=== PATIENT | female | born 1940 | race Caucasian/White ===

== ENCOUNTER 2019-11-16 09:04 | Outpatient (CLI) | payer MEDICARE, OTHER, SELFPAY ==
--- NOTE | ~2019-11-16 | MM_ITS ---
EXAMINATION: MM screening dolores BI w maru HISTORY: Screening mammogram TECHNIQUE: Craniocaudal and mediolateral oblique 3-D tomosynthesis images were obtained and synthetic 2-D images were generated. CAD analysis was submitted and interpreted. COMPARISON: 08/10/2018, 04/18/2017, 12/05/2015 BREAST PARENCHYMAL COMPOSITION: The breasts are heterogeneously dense, which may obscure small masses . FINDINGS: Scattered benign-appearing calcifications are present. There is no evidence of suspicious m ass, calcification, or architectural distortion to suggest malignancy in either breast. There has bee n no suspicious interval change. IMPRESSION: 1. No mammographic evidence of malignancy. 2. Recommend routine screening mammography in one year. BI-RADS Category 2: Benign finding(s). Reviewed, dictated and finalized at location A.
== END 2019-11-16 09:05 | disposition home or self-care (01) ==
LOC: ANHIMG 09:16
PROVIDERS: PCP Internal Medicine; Visit Provider Internal Medicine
DX: Z12.31 Encounter for screening mammogram for malignant neoplasm of breast (principal)
CPT/HCPCS: 77063; 77067

== ENCOUNTER 2020-12-06 10:10 | Outpatient (CLI) | payer MEDICARE, SELFPAY ==
--- NOTE | ~2020-12-06 | MM_ITS ---
EXAMINATION: MM screening dolores BI w maru HISTORY: Screening mammogram TECHNIQUE: Craniocaudal and mediolateral oblique 3-D tomosynthesis images were obtained and synthetic 2-D images were generated. CAD analysis was submitted and interpreted. COMPARISON: 11/16/2019, 08/06/2018, 04/18/2017 bilateral digital screening mammogram examinations BREAST PARENCHYMAL COMPOSITION: The breasts are heterogeneously dense, which may obscure small masses . FINDINGS: Scattered bilateral benign calcifications. There is no evidence of suspicious mass, calcifi cation, or architectural distortion to suggest malignancy in either breast. There has been no suspici ous interval change. IMPRESSION: 1. No mammographic evidence of malignancy. 2. Recommend routine screening mammography in one year. BI-RADS Category 2: Benign finding(s). Reviewed, dictated and finalized at location A.
== END 2020-12-06 10:11 | disposition home or self-care (01) ==
LOC: ANHIMG 10:14
PROVIDERS: PCP Internal Medicine; Visit Provider Internal Medicine
DX: Z12.31 Encounter for screening mammogram for malignant neoplasm of breast (principal)
CPT/HCPCS: 77063; 77067

== ENCOUNTER 2021-07-20 14:28 | Outpatient (RCR) | payer MEDICARE, SELFPAY ==
[2021-07-20] MEDS: diphenhydrAMINE HCl CAP 25 MG CAPSULE PO (14:37)
[2021-07-20] MEDS: FAMOTIDINE 20 MG TABLET PO (14:38)
[2021-07-20 14:41] VITALS: BP 137/73; PULSE 84; RESP 18; TEMP 35.9; O2SAT 100
[2021-07-20] MEDS: BEBTELOVIMAB 175 MG/2 ML VIAL IV PUSH (15:01)
[2021-07-20 15:49] VITALS: BP 127/74; PULSE 76; RESP 18; O2SAT 100
== END 2021-07-20 16:00 | disposition home or self-care (01) ==
LOC: AMCINF 14:28
PROVIDERS: Referring Provider Internal Medicine; Visit Provider Internal Medicine Hematology & Oncology
DX: U07.1 COVID-19 (principal); J44.9 Chronic obstructive pulmonary disease, unspecified
CPT/HCPCS: A9270; M0222; Q0222

== ENCOUNTER 2021-08-01 13:40 | Outpatient (CLI) | payer MEDICARE, SELFPAY ==
--- NOTE | ~2021-08-01 | XR_ITS ---
EXAMINATION: XR chest 2V Exam Date/Time: 08/01/2021 14:07 CDT HISTORY: DRY COUCH X 2 MONTHS Comparison: None available. RESULT: Lines, tubes, and devices: None. Lungs and pleura: Senescent changes, otherwise clear. Cardiomediastinal silhouette: Stable cardiomediastinal silhouette. Other: No acute osseous or upper abdominal finding. Presumed old mild anterior wedge deformity at T7 . IMPRESSION: No acute cardiopulmonary process. Reviewed, dictated and finalized at location K.
== END 2021-08-01 13:41 | disposition home or self-care (01) ==
PROVIDERS: PCP Internal Medicine; Visit Provider Internal Medicine
DX: R05.9 Cough, unspecified (principal)
CPT/HCPCS: 71046

== ENCOUNTER 2021-12-25 13:17 | Outpatient (CLI) | payer MEDICARE, SELFPAY ==
--- NOTE | ~2021-12-25 | DEXA_ITS ---
Bone Density Report Name: JOEY GÓMEZ Age: 81 Sex: Female Ethnicity: White Date of : 1940 Indication: postmenopausal; screening for osteoporosis; parental hip fracture; height loss; prior fracture; Referring Provider[facility] Study: Bone densitometry was performed. Exam Date: December 25, 2021 Accession number: [id number] Bone Density: Region BMD T-score Z-score Classification AP Spine(L1-L4) 0.946 -0.9 1.8 Normal Femoral Neck (Right) 0.527 -2.9 -0.5 Osteoporosis Total Hip (Right) 0.566 -3.1 -1.0 Osteoporosis World Health Organization criteria for BMD impression classify patients as: Normal (T-score at or above -1.0), Osteopenia (T-score between -1.0 and -2.5), or Osteoporosis (T-score at or below -2.5). 10-year Fracture Risk: FRAX not reported because: Some T-score for Spine Total or Hip Total or Femoral Neck at or below -2.5 Prior hip or vertebral fracture Clinical Information Provided by Patient: Have had a previous hip or vertebral fracture Has had a low trauma fracture Parent has had a hip fracture Has used the following medications: Vitamin D, Calcium Patient maximum height was 70 Menopause Age: 55 Drinks caffeinated beverages Onset of menses at age 13 Number of children 3 Impression: The patient has established osteoporosis, based on the Right Total Hip T-score and the existence of a prior fracture. The patient has risk factors, including: parental hip fracture, previous fracture. Discussion: HIGH RISK OF FRACTURE. BONE DENSITY IS UNDESIRABLY LOW AT ONE OR MORE SKELETAL SITES, CONSISTENT WITH POSTMENOPAUSAL OSTEOPOROSIS. This patient's lowest T-score, in a patient who has previously fractured, meets the World Health Organization's (WHO) criteria for severe osteoporosis. In untreated patients, the risk of osteoporotic fracture increases approximately two-fold for each 1.0 SD decrease in T-score. Low bone density is not the only risk factor for fracture; also consider factors such as patient's age, frailty or poor health, risk of falling, risk of injury, previous osteoporotic fracture, family history of osteoporosis, cigarette smoking, low body weight, etc. Not everyone with low bone mineral density has osteoporosis; osteomalacia and other metabolic bone disorders should also be considered. Patients who have osteoporosis should be evaluated for specific diseases and conditions (secondary causes) that may cause or contribute to bone loss. The [place] Association of Clinical Endocrinologists (AACE) and National Osteoporosis Foundation (NOF) recommend pharmacologic intervention for all postmenopausal women with a previous hip or vertebral fracture and a T-score in this range. The patient should follow a healthful lifestyle (good nutrition with adequate calcium and vitamin D, and appropriate weight-bearing exercise).
== END 2021-12-25 13:18 | disposition home or self-care (01) ==
PROVIDERS: PCP Internal Medicine; Visit Provider Internal Medicine
DX: M81.0 Age-related osteoporosis without current pathological fracture (principal)
CPT/HCPCS: 77080

== ENCOUNTER 2022-02-04 09:21 | Outpatient (CLI) | payer MEDICARE, SELFPAY ==
--- NOTE | ~2022-02-04 | MM_ITS ---
EXAMINATION: MM screening dolores BI w maru HISTORY: Screening TECHNIQUE: Craniocaudal and mediolateral oblique 3-D tomosynthesis images were obtained and synthetic 2-D images were generated. CAD analysis was submitted and interpreted. COMPARISON: Comparison to multiple prior studies sequentially, with oldest reviewed study dated 03/16. BREAST PARENCHYMAL COMPOSITION: The breasts are heterogeneously dense, which may obscure small masses FINDINGS: There is a developing focal asymmetry superiorly in the right breast on MLO view. The left breast is stable without evidence for malignancy. IMPRESSION: 1. Developing right breast asymmetry superiorly on MLO view. 2. Additional mammographic views and possible breast ultrasound are recommended. BI-RADS Category 0: Incomplete: Needs additional imaging evaluation. Reviewed, dictated and finalized at location A. NT SERVICES MANAGER IMPRESSION: 1. Developing right breast asymmetry superiorly on MLO view. 2. Additional mammographic views and possible breast ultrasound are recommended . BI-RADS Category 0: Incomplete: Needs additional imaging evaluation.
== END 2022-02-04 09:22 | disposition home or self-care (01) ==
LOC: ANHIMG 09:22
PROVIDERS: PCP Internal Medicine; Visit Provider Internal Medicine
DX: Z12.31 Encounter for screening mammogram for malignant neoplasm of breast (principal); R92.8 Other abnormal and inconclusive findings on diagnostic imaging of breast
CPT/HCPCS: 77063; 77067

== ENCOUNTER 2022-03-07 12:30 | Outpatient (CLI) | payer MEDICARE, SELFPAY ==
--- NOTE | ~2022-03-07 | MM_ITS ---
EXAMINATION: MM diagnostic dolores RT w maru HISTORY: Possible right breast mass on screening mammogram TECHNIQUE: Additional 3-D tomosynthesis images of the right breast were performed and synthetic 2-D i mages were generated. CAD analysis was submitted and interpreted. COMPARISON: 02/04/2022, 12/06/2020, 11/16/2019 FINDINGS: There is a return to baseline fibroglandular appearance with spot compression of the right breast in the area questioned on screening mammogram. A stable asymmetry is seen in the middle third of the upper right breast on the mediolateral oblique view. IMPRESSION: 1. No mammographic evidence of malignancy. 2. Recommend annual screening mammography while the patient remains in good health. BI-RADS Category 2: Benign finding(s). Reviewed, dictated and finalized at location A. ATER IMPRESSION: 1. No mammographic evidence of malignancy. 2. Recommend annual screening mammography while the patient remains in good hea lth. BI-RADS Category 2: Benign finding(s).
== END 2022-03-07 12:31 | disposition home or self-care (01) ==
PROVIDERS: PCP Internal Medicine; Visit Provider Internal Medicine
DX: R92.8 Other abnormal and inconclusive findings on diagnostic imaging of breast (principal)
CPT/HCPCS: 77061; 77065; G0279

== ENCOUNTER 2022-08-14 14:02 | Outpatient (CLI) | payer MEDICARE, SELFPAY ==
--- NOTE | ~2022-08-14 | XR_ITS ---
EXAMINATION: XR hip RT min 2V DATE: 08/14/2022 14:28 INDICATION: Right hip pain TECHNIQUE: Two views of right hip were obtained. COMPARISON: None. FINDINGS: Bone alignment is normal. There is no fracture. There is mild osteoarthritis of the right. The soft tissues are unremarkable. There is at least moderate lower lumbar spondylosis. IMPRESSION: 1. No acute osseous abnormality. Reviewed, dictated and finalized at location []
== END 2022-08-14 14:03 | disposition home or self-care (01) ==
PROVIDERS: PCP Internal Medicine; Visit Provider Internal Medicine
DX: M25.551 Pain in right hip (principal)
CPT/HCPCS: 73502

== ENCOUNTER 2023-08-18 09:50 | Outpatient (CLI) | payer MEDICARE, SELFPAY ==
--- NOTE | ~2023-08-18 | MM_ITS ---
EXAMINATION: MM screening dolores BI w maur HISTORY: Screening mammogram, family history of breast cancer in her sister. TECHNIQUE: Craniocaudal and mediolateral oblique 3-D tomosynthesis images were obtained and synthetic 2-D images were generated. CAD analysis was submitted and interpreted. COMPARISON: 02/04/2022, 12/06/2020, 11/16/2019 BREAST PARENCHYMAL COMPOSITION:Dense: The breasts are heterogeneously dense, which may obscure small masses. FINDINGS: No suspicious mass, calcification, or architectural distortion are identified in either harpreet ast to suggest malignancy. There has been no suspicious interval change. IMPRESSION: No mammographic evidence of malignancy. Recommend routine screening mammography in one year. BI-RADS Category 1: Negative Reviewed, dictated and finalized at location .
== END 2023-08-18 09:51 | disposition home or self-care (01) ==
LOC: ANHIMG 09:52
PROVIDERS: PCP Internal Medicine; Visit Provider Internal Medicine
DX: Z12.31 Encounter for screening mammogram for malignant neoplasm of breast (principal)
CPT/HCPCS: 77063; 77067

== ENCOUNTER 2023-11-27 10:50 | Outpatient (CLI) | payer MEDICARE, SELFPAY ==
--- NOTE | ~2023-11-27 | US_ITS ---
EXAMINATION: US venous doppler [facility] DATE: 11/27/2023 11:35 INDICATION: Left lower limb pain and edema. TECHNIQUE: Grayscale ultrasound images without and with compression and Doppler ultrasound images of the left lower extremity veins were obtained. COMPARISON: None. FINDINGS: The visualized portions of left common femoral vein, profunda (deep) femoral vein, femoral vein, popl iteal vein, peroneal veins, posterior tibial veins, and greater saphenous vein outflow are patent. IMPRESSION: 1. No deep venous thrombosis. Reviewed, dictated and finalized at location A.
--- NOTE | ~2023-11-27 | XR_ITS ---
Left ankle Technique: AP, oblique, and lateral views were obtained. Clinical History: Pain Findings: No acute fracture or dislocation is seen. Osseous alignment is anatomic. Ankle mortise and other visualized joint spaces are preserved. Soft tissues are otherwise unremarkable. Impression: Unremarkable left ankle. Reviewed, dictated and finalized at location . Impression: Unremarkable left ankle.
== END 2023-11-27 10:51 | disposition home or self-care (01) ==
PROVIDERS: PCP Internal Medicine; Visit Provider Internal Medicine
DX: R60.0 Localized edema (principal)
CPT/HCPCS: 73610; 93971

== ENCOUNTER 2024-12-27 15:10 | Outpatient (CLI) | payer MEDICARE, SELFPAY ==
--- NOTE | ~2024-12-27 | MM_ITS ---
EXAMINATION: MM screening dolores BI w maru HISTORY: Screening TECHNIQUE: Craniocaudal and mediolateral oblique 3-D tomosynthesis images were obtained and synthetic 2-D images were generated. CAD analysis was submitted and interpreted. COMPARISON: Comparison to multiple prior studies sequentially, with oldest reviewed study dated 08/10/2018. BREAST PARENCHYMAL COMPOSITION: Dense: The breasts are heterogeneously dense, which may obscure small masses FINDINGS: There is no evidence of suspicious mass, calcification, or architectural distortion to suggest malignancy in either breast. There has been no suspicious interval change. IMPRESSION: 1. No mammographic evidence of malignancy. 2. Recommend routine screening mammography in one year. BI-RADS Category 1: Negative Reviewed, dictated and finalized at location B. [employer]
--- OUTSIDE RECORDS SUMMARY | 2024-12-27 15:13 | XMS_ITS | Clinical Summary ---
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 Gender Identity Not on file Sexual Orientation Not on file Plan of Treatment Health Maintenance Due Date Last Done Comments Hepatitis C Virus (HCV) Screening 1940 Pneumococcal Immunization (50+ years) (1 of 1 - PCV) 1990 Zoster Immunization (1 of 2) 1990 Respiratory Syncytial Virus (RSV) Immunization (Adult) (1 - 1-dose 75+ series) 09/25/2015 Influenza Immunization (#1) 2024 09/0 09/2019, 12/24/2017, 01/15/2017, Additional history exists SARS-COV-2 Immunization ( season) 2024 DTaP/Tdap/Td Immunization Discontinued 08/16/2019 TdaP Immunization Completed 08/16/2019 Hepatitis B Immunization Aged Out No longer eligible based on patient's age to complete this topic Human Papillomavirus (HPV) Immunization Aged Out No longer eligible based on patient's age to complete this topic Meningococcal Immunization (ACWY) Aged Out No longer eligible based on patient's age to complete this topic Rotavirus Immunization Aged Out No lo nger eligible based on patient's age to complete this topic
--- OUTSIDE RECORDS SUMMARY | 2024-12-27 15:13 | XMS_ITS | Clinical Summary ---
Author Organization [facility] [place] Address [address] [place] [address] Care Team Providers Care Caretaker Resort Name Role Phone Austin Barrientos MD Primary Care Provider [phone] Allergies No known active allergies Medications rosuvastatin (CRESTOR) 5 mg tablet Take 1 tablet (5 mg total) by mouth daily with dinner 10/15/19 21 Active calcium carbonate (OS-ESTHER) 1,250 mg (500 mg elemental) tablet Take 1 tablet (1,250 mg total) by mouth every morning Active gabapentin (NEURONTIN) 100 mg capsule Take 1 capsule (100 mg total) by mouth as needed Active fexofenadine (RAYNA) 180 mg tablet Take 1 tablet (180 mg total) by mouth nightly Active fluticasone propionate (FLONASE) 50 mcg/actuation nasal spray Administer 1 spray into each nostril every morning Active ergocalciferol (VITAMIN D) 50,000 unit capsule TAKE 1 CAP 2 X A WEEK FOR 8 WEEKS THEN FOLLOW UP WITH YOUR PCP. 16 capsule 02/20/19 24 Active senna-docusate (PERICOLACE) 8.6-50 mgIndications:cons tipation Take 2 tablets by mouth 2 (two) times a day 80 tablet 02/25/19 24 Active ondansetron ODT (ZOFRAN-ODT) 4 mg disintegrating tabletIndications: Prevention of Post-Operative Nausea and Vomiting Take 1 tablet (4 mg total) by mouth every 8 (eight) hours as needed for nausea or vomiting 20 tablet 02/26/19 24 Active acetaminophen 500 mg capsuleIndications :Pain Take 2 capsules (1,000 mg total) by mouth every 8 (eight) hours 90 tablet 03/12/19 24 Active levothyroxine (SYNTHROID) 25 mcg tablet Take 1 tablet every day by oral route in the morning. 02/15/20 23 Active traZODone (DESYREL) 50 mg tablet Active traMADoL (ULTRAM) 50 mg tabletIndications: Postoperative pain Take 1 tablet (50 mg total) by mouth every 8 (eight) hours as needed for pain 42 tablet 05/15/19 24 Active ibuprofen 200 mg tab/cap Take 2 tablet/capsule (400 mg total) by mouth every 6 (six) hours as needed for pain Active spironolactone (ALDACTONE) 25 mg tablet Take 1 tablet (25 mg total) by mouth daily 11/26/19 24 Active amoxicillin-clavul anate (AUGMENTIN) 500-125 mg per tablet TAKE 1 TABLET BY MOUTH EVERY 8 HOURS FOR 10 DAYS 025 Discontin ued(Thera py completed ) amoxicillin-clavul anate (AUGMENTIN) 875-125 mg per tablet Take 1 tablet by mouth every 12 (twelve) hours 08/10/19 025 Discontin ued(Thera py completed ) Active Problems Problem Noted Date Diagnosed Date Lumbar radiculopathy 12/14/2024 Arthritis 05/24/2024 Fatigue 05/24/2024 Osteoporosis 05/24/2024 Polyp of colon 05/24/2024 Neurogenic claudication 10/17/2023 Chronic bilateral low back pain 10/17/2023 Arthritis of right knee 02/25/2023 Hypertension 02/12/2023 History of DVT (deep vein thrombosis) 02/12/2023 Allergic rhinitis 01/15/2023 Cellulitis of lower leg 07/07/2022 Atypical chest pain 06/04/2022 Cramp in lower leg associated with rest 06/05/19 Acute sinusitis 05/31/2022 Neuropathy 05/04/2022 High thyroid stimulating hormone (TSH) level 09/2022 Compression fracture of thoracic vertebra 2022 Cough 02/18/2022 Hyperlipidemia 02/18/2022 Standard chest x-ray abnormal 02/18/2022 Underweight 02/18/2022 Osteoarthritis of knee 02/18/2022 Pain of right hip joint 02/18/2022 Hip pain 02/18/2022 Mammogram abnormal 02/12/2022 Other abnormal and inconclus charlie findings on diagnostic imaging of breast 02/12/2022 Right hip pain 05/08/2021 Bucket-handle tear of medial meniscus of right knee as current injury 05/07/2021 Primary osteoarthritis of right knee 02/27/2021 Suspected severe acute respi ratory syndrome coronavirus 2 (SARS-CoV-2) infection 05/03/2020 Encounters Date Type Department Care Team Description 12/14/2024 1:24 PM CDT - 12/14/2024 11:59 PM CDT Hospital Encounter [facility] [place] at the [address] [place] [id number] Rhea Chino MD Lumbar radiculopathy (Primary Dx); Primary osteoarthritis of left knee Discharge Disposition: Discharge to home or self care 11/01/2024 Orders Only [facility] at the [address] [place] [address] Rhea Chino MD Lumbar radiculopathy (Primary Dx) 11/01/2024 Telephone [facility] at the [address] [place] [id number] Rhea Chino MD pt order 10/15/2024 11:30 AM CDT Office Visit [facility] [address] [place] [address] Liyah Mallory [place], [place] Primary osteoarthritis of left knee (Primary Dx) from Last 3 Months Immunizations Immunization Administration Dates Next Due COVID-19 mRNA (PFIZER) 0.3 m L (10 mcg) vaccine (5-11 years) 11/19/2022 Flucelvax Influenza Quad MDI 01/04/2013 Influenza, Quadrivalent, Spl it, Intramuscular 11/18/2015,01/04/2013 Influenza, Quadrivalent, Spl it, Preservative Free, Intramuscular 12/22/2018 Influenza, Trivalent, Adjuva nted, Intramuscular 01/15/2017 Influenza, Trivalent, High D ose, Split, Preservative Free, Intramuscular 12/24/2017,12/26/2015 Influenza, Trivalent, IM (MDV) 12/22/2018 Influenza, Trivalent, Preser vative Free, Intramuscular 10/26/2019,12/04/2014,01/04/2014 Influenza, Unspecified 11/12/2022 Pfizer SARS-CoV-2 Monovalent Vaccination (12+ Yrs) PURPLE 12/01/2020 Tdap 08/16/2019 ZOSTER Recombinant 06/21/2022,02/20/2022 Surgical History Surgery Date Site/Laterality Comments TOTAL HIP ARTHROPLASTY Left JOINT REPLACEMENT Left hip BREAST SURGERY Right lumpectomy BUNIONECTOMY Left Medical History Medical History Date Comments Hypercholesteremia Allergic rhinitis Nerve damage of foot right foot after shingels Motion sickness Family History Medical History Relation Name Comments Coronary artery disease Father Hyperlipidemia Father Hypertension Father Heart disease Mother Anesthesia problems Neg Hx Relation Name Status Comments Father Mother Social History Tobacco Use Types Packs/Day Years Used Date Smoking Tobacco: Former Cigarettes Q uit: 1979 Smokeless Tobacco: Never Tobacco Cessation:Counseling Given: Not Answered Comments:Social smoker Alcohol Use Standard Drinks/Week Comments Yes 4 (1 standard drink = 0.6 oz pur e alcohol) Hunger Vital Sign Answer Date Recorded Within the past 12 months, y ou worried that your food would run out before you got the money to buy more. Never true 10/17/19 24 Within the past 12 months, t he food you bought just didn't last and you didn't have money to get more. Never true 10/17/2023 AUDIT-C Answer Date Recorded Q1: How often do you have a drink containing alcohol? 4 or more times a week 12/14/2024 Q2: How many drinks containi ng alcohol do you have on a typical day when you are drinking? 1 or 2 Q3: How often do you have si x or more drinks on one occasion? Less than monthly 12/14/2024 Personal Safety Answer Date Recorded Have you ever been in or are you currently in a harmful physical or emotional relationship or is someone making you feel afraid or unsafe? 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 Gender Identity Not on file Sexual Orientation Not on file Last Filed Vital Signs Vital Sign Reading Time Taken Comments Blood Pressure 117/70 12/14/2024 1:30 PM CDT 81 Pulse 72 12/14/2024 1:30 PM CDT Temperature 36.1 C (97 F) 12/14/2024 1:30 PM CDT Respiratory Rate 16 12/14/2024 1:30 PM CDT Oxygen Saturation 97% 12/14/2024 1:30 PM CDT Inhaled Oxygen Concentration - - Weight 57.2 kg (126 lb 3.2 oz) 12/14/2024 1:30 P M CDT Height 152.4 cm (5') 12/14/2024 1:30 PM CDT Body Mass Index 24.65 12/14/2024 1:30 PM CDT Plan of Treatment Health Maintenance Due Date Last Done Comments Depression Screening 1940 Hepatitis B Screening 1958 Pneumococcal vaccine 65+ (1 of 2 - PCV) 09/25/1959 Well Visit 65+ 2005 Osteoporosis Screening-Bone Density Scan 10/09/2023 10/08/2021, 07/31/2021, 04/10/2021, Additional history exists Fall Risk Assessment 02/27/2024 02/26/2023 Covid-19 Vaccine (2024-2 6 season) 2024 11/19/2022, 12/01/2020, 04/10/2020, Additional history exists Influenza Vaccine (#1) 2024 , 10/26/2019, 12/22/2018, Additional history exists DTaP/Tdap/Td Vaccine (2 - Td or Tdap) 08/15/2029 08/16/2019 Zoster Vaccine Completed 06/21/2022, 02/20/2022 Goals Goal Patient Goal Type Associated Problems Recent Progress Patient-Stated? Author CCM Chronic Pain Care Plan Chronic Care Management On track(2024 1:38 PM CDT) Saritha Robbins, RN Note: Problem: Chronic Pain Goals: 1. Minimize further functional decline 2. Maximize quality of life 3. Control pain Strategies: - Activity/exercise program recommendation - Conservative stepwise pain medicine strategy with multi-disciplinary approach - Recommend healthy lifestyle strategies and compensatory methods as needed Medical Devices Implanted Type Area Geospatial Engineer Device Identifier Shelf Expiration Date Model / Serial / Lot Hip Left: Hip [employer] Attune Fb Tib Base Sz 6 Por [id number] - [id number] Implanted:Qty: 1 on 02/25/2023 by Adriel Dalton MD at [facility] Right: Knee [employer] [id number] 02/17/2032 [id number] / / [employer] Insert Tibial Knee Fixed Rm Posterior Stabilized Attune 5mm Size 7 Polyethylene [id number] - [id number] Implanted:Qty: 1 on 02/25/2023 by Adriel Dalton MD at [facility] Right: Knee [employer] [id number] 12/17/2030 [id number] / / [employer] Attune Cruciate Retain Cementless Knee Right 7 Component Femoral [id number] - [id number] Implanted:Qty: 1 on 02/25/2023 by Adriel Dalton MD at [facility] Right: Knee [employer] [id number] 09/16/2032 [id number] / / Procedures Procedure Name Priority Date/Time Associated Diagnosis Comments VA ARTHROCENTESIS ASPIR&/INJ MAJOR JT/BURSA W/O US Routine 10/15/2024 11:30 AM CDT Primary osteoarthritis of left knee from Last 3 Months Results * VA ARTHROCENTESIS ASPIR&/INJ MAJOR JT/BURSA W/O US (10/15/2024 11:30 AM CDT) Narrative Liyah Mallory PA - 10/15/2024 11:30 AM CDT Liyah Mallory PA 10/15/2024 12:00 PM Large Joint Injection: L knee Performed by: Liyah Mallory PA Authorized by: Liyah Mallory PA Large Joint Injection/Aspiration: Consent Given by: Patient Site marked: the procedure site was marked Verbal consent obtained: Yes Supporting Documentation: Indications: Pain Procedure Details: Location: Knee Site: L knee Prep: patient was prepped and draped in usual sterile fashion Needle Size: 21 G Approach: Anterolateral Ultrasound guided: No Fluroscopic guidance: No Medications: 30 mg hyaluronate sodium, cross-linked 30 mg/3 mL Patient tolerance: Patient tolerated the procedure well with no immediate complications us Liyah MERIDA IN CLINIC/BEDSIDE OR DERABLES Final Result from Last 3 Months Insurance MEDICARE [facility] MEDICARE [facility] MEDICARE SUPPLEMENT MEDICARE [facility] MEDICARE SUPPLEMENT Advance Directives For more information, please contact: [phone] Documents on File Type Date Recorded 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
--- OUTSIDE RECORDS SUMMARY | 2024-12-27 15:13 | XMS_ITS | Clinical Summary ---
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 Gender Identity Not on file Sexual Orientation Not on file Plan of Treatment Health Maintenance Due Date Last Done Comments Pneumococcal Vaccine: 50+ Years (1 of 1 - PCV) 1990 Zoster Vaccines (1 of 2) 1990 Annual Medicare Wellness Visit 2005 RSV Immunization or 60+ Years (1 - 1-dose 75+ series) 09/25/2015 COVID-19 Vaccine ( - season) 2024 12/01/2020, 04/10/2020, 03/17/2020 Influenza Adult (#1) 2024 10/26/2019, 12/22/2018, 01/15/2017, Additional history exists DTaP, Tdap and Td Vaccines (2 - Td or Tdap) 08/15/2029 08/16/2019 Dexa Scan (General) Completed 10/08/2021, 07/31/2021, 04/10/2021, Additional history exists Hepatitis A Vaccines Aged Out No long er eligible based on patient's age to complete this topic Meningococcal B Vaccine Aged Out No l onger eligible based on patient's age to complete this topic Meningococcal Vaccine Aged Out No tori hari eligible based on patient's age to complete this topic RSV Immunizations Under 20 Months Aged Out No longer eligible based on patient's age to complete this topic Insurance MEDICARE [place] [address] [place] [address] Care Teams 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
--- OUTSIDE RECORDS SUMMARY | 2024-12-27 15:14 | XMS_ITS | Encounter Summary ---
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 Phone Unavailable Primary Care Provider Unavailabl e Encounter Details Date Type Department Care Team (Late st Contact Info) Description 11/19/2023 Lab Requisition [facility] - DermPath Lab [address] [facility] [place] [address] Enedina Navarrete MD [address] [facility] [address] [place] [address] Social History Tobacco Use Types Packs/Day Years Used Date Smoking Tobacco: Never Assessed Comments Unknown Sex and Gender Information Value Date Recorded Sex Assigned at Not on file 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 Gender Identity Not on file Sexual Orientation Not on file documented as of this encounter Plan of Treatment Not on file documented as of this encounter Procedures Procedure Name Priority Date/Time Associated Diagnosis Comments DERMATOPATHOLOGY Routine 11/19/2023 3:44 PM CDT documented in this encounter Results * DERMATOPATHOLOGY (11/19/2023 3:44 PM CDT) Case Report Dermatopathology Report Case: [id number] Authorizing Provider: Enedina Navarrete MD Collected: 11/19/2023 03:44 PM Ordering Location: [facility] - Received: 11/20/2023 03:51 PM DermPath Lab Pathologist: Dena Wilkinson MD Specimen: Skin, right upper forearm 4:54 PM CDT DERMATOPATHOLOGY LABORATORY Final Diagnosis Specimen A. 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 DERMATOPATHOLOGY LABORATORY Gross Description Specimen A: Received is one formalin filled container labeled with the patient's name and designated right upper forearm.The specimen consists of an ellipse measuring [id number] mm and is oriented with the suture/notch at the 12 o'clock position labeled on the requisition. The 12 to 6 o'clock margin is inked green. The 6 o'clock to 12 o'clock margin is inked red. The 12 o'clock tip is submitted in cassette 1. The 6 o'clock tip is submitted in cassette 2. The remainder of the ellipse is serially sectioned and submitted in cassettes 3-6. Jar 0. 4:[address] [facility] DERMATOPATHOLOGY LABORATORY Microscopic Description Specimen A. SKIN, right upper forearm: The epidermis shows parakeratosis, full thickness disorderly maturation of keratinocytes, mitoses at different levels, and dyskeratotic cells. This lesion is not present at the margin of the specimen. There are fibroblasts and collagen bundles oriented parallel to the skin surface with elongated blood vessels, some of which are oriented perpendicular to the skin surface. 4:[address] [facility] DERMATOPATHOLOGY LABORATORY Disclaimer An external and internal positive and negative controls are appropriate for the histochemical, immunohistochemical and immunofluorescence stain(s) in this case (if any), except where stated explicitly. The performance characteristics of the stain(s) cited in this report were developed and its performance characteristic determined by the Dermatopathology Laboratory at [facility], directed by Dr. Tisha Jacinto. These tests need not be, and therefore are not, approved by the [place] Food and Drug Administration. The tests are used for clinical purposes. Billing Codes Specimen Charges Stain Charges 97461 1 4:54 PM CDT DERMATOPATHOLOGY LABORATORY Embedded Images 4:54 PM T DERMATOPATHOLOGY LABORATORY Pathology/Cytolo gy TISSUE SPECIMEN FROM SKIN / Unknown 11/19/2023 3:44 PM CDT 11/20/2023 3:51 PM CDT us Enedina Navarrete MD LAB - PATHOLOGY/CYTOLOGY ORD ERABLES Final Result DERMATOPATHOLOGY LABORATORY [facility] - Department of Dermatology [facility] Special[facility] Medicine [address] [place] [address], [address] [phone] documented in this encounter Visit Diagnoses Not on filedocumented in this encounter
--- OUTSIDE RECORDS SUMMARY | 2024-12-27 15:14 | XMS_ITS ---
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 fallen for over -- no fear of falling or falling tendency [id number] Austin Barrientos MD [place], [place] [address] [facility] [address] [address] 05/07/2023 15:02:04 05/07/2023 17:16:38 Low back pain 768531467 M54.50 -- recheck lab(s) within 7 days from 05/07/[address] imulating hormone level above reference range 539347947 R79.89 -- recheck lab(s) within 7 days from 05/07/23 Hyperlipidemia 59150319 E78.5 -- Based on Atheroscle rotic Cardiovasc ular Disease 10-year risk calculatio n of 20.0% on 10/26/17, I will recommend pt start on cholestero l med to decrease her high risk for stroke, & heart attack. -- recheck lab(s) within 7 days from 05/07/23 Insomnia 769476857 G47.0 0 [id number] Austin Barrientos MD [facility], [address] [place] ,[address] [place] [address] 06/12/2023 11:50:51 06/12/2023 13:53:23 Low back pain 439113915 M54.50 -- recheck lab(s) within 7 days from 05/07/23 [id number] [facility] [address] [place] ,[address] [place] [address] 07/28/2023 15:52:07 07/28/2023 16:18:37 Spontaneous ecchymosis 691894278 R23.3 -- advised to stop Ibuprofen- - see photo Pain in right foot 99115 75681 53533 M79.671 [id number] Austin Barrientos MD [facility], [address] [place] ,[address] [address] 10/23/2023 14:20:28 10/23/2023 15:36:43 Lumbar radiculopathy 863241755 M54.16 -- currently seeing pain management at [facility] Dr Rhea Chino ([phone])-- pt reports she will be getting epidural injection on 11/27/23 [id number] MD [facility], [address] [place] ,[address] [place] [address] 11/26/2023 08:28:53 11/26/2023 09:01:57 Venous stasis ulcer with edema of left lower leg 6096117748 6567253 L97.929 At low risk for fall 439 879779 Z91.81 -- no unsteady balance or gait problems-- no fear of falling or falling tendency Pain of le ft ankle joint 4421595059 3512759 M25.572 [id number] [facility], [address] [place] [address] [place] [address] 01/13/2024 10:48:55 01/13/2024 12:02:04 Swelling of lower limb 970927641 R22.40 (LLE >>RLE) Adult heal th examination 409145790 Z00.00 Venous sta sis ulcer with edema of left lower leg 5791155599 4175754 L97.929 Pain of le ft ankle joint 5340063903 5603897 M25.572 -- xrays on 11/27/23 At low risk for fall 439 158028 Z91.81 -- no unsteady balance or gait problems-- no fear of falling or falling tendency Left flank pain 58052172 9 R10.9 Hypothyroidism 96010634 E03.9 Hyperlipidemia 84956581 E78.5 -- Based on Atheroscle rotic Cardiovasc ular Disease 10-year risk calculatio n of 20.0% on 10/26/17, I will recommend pt start on cholestero l med to decrease her high risk for stroke, & heart attack. -- recheck lab(s) Osteoarthr itis of knee 045104404 M17.9 -- pt has surgery scheduled w/ Dr Adriel Dalton-- pt is medically cleared for Rt TKR on 02/25/23 Osteoporosis 64878993 M8 1.0 -- last DEXA done 12/25/21-- advised weight bearing exercise-- pt does not want to do Anabolics Cramp in l ower leg associated with rest 890939427 G47.62 -- may be anemic after Rt TKR on 09/17/[address] Carlos Mendoza-- recheck lab(s) in 2 months Body mass index less than 20 905037695 Z68.1 -- advised weight gain; pt lost 1 # since her last visit -- pt's BMI today is 16.9 (ideal is between 20-25) Active or passive immunization 502809034 Z23 -- pt reported she had Flu shot in Fall of 2021 Long-term drug therapy 743477862 Z79.891 (rosuvasta tin) [id number] Austin Barrientos MD [facility] [address] [facility] [place] ,[address] [address] 06/17/2024 10:19:57 06/17/2024 11:39:32 Acute upper respiratory infection 21580453 J06.9 2456 -- already on Amox-clav from [facility]. Increased frequency of urination 661185171 R35.0 92590 Hypothyroidism 60396974 E03.9 Swelling o f lower limb 532308047 R22.40 (LLE >>RLE) Venous sta sis ulcer with edema of left lower leg 5088344043 4074332 L97.929 -- heeled Pain of le ft ankle joint 3635971199 4741637 M25.572 -- xrays on 11/27/23 Hyperlipidemia 50484362 E78.5 -- Based on Atheroscle rotic Cardiovasc ular Disease 10-year risk calculatio n of 20.0% on 10/26/17, I will recommend pt start on cholestero l med to decrease her high risk for stroke, & heart attack. -- recheck lab(s) Osteoarthr itis of knee 917026288 M17.9 -- pt has surgery scheduled w/ Dr Adriel Dalton-- pt is medically cleared for Rt TKR on 02/25/23 Osteoporosis 37362160 M8 1.0 -- last DEXA done 12/25/21-- advised weight bearing exercise-- pt does not want to do Anabolics Cramp in l ower leg associated with rest 464341338 G47.62 -- may be anemic after Rt TKR on 09/17/[address] Carlos Mendoza-- recheck lab(s) in 2 months Long-term drug therapy 972326758 Z79.891 (rosuvasta tin) At low risk for fall 439 325332 Z91.81 -- no unsteady balance or gait problems-- no fear of falling or falling tendency Body mass index less than 20 827242188 Z68.1 -- advised weight gain; pt gained 2 # since her last visit -- pt's BMI today is 17.2 (ideal is between 20-25) Active or passive immunization 598278786 Z23 -- pt reported she had Flu shot in Fall of 2021 [id number] Austin Barrientos MD [employer] [address] [facility] [address] [address] 09/22/2024 15:48:52 09/22/2024 17:53:07 Superficial laceration of skin 439236362 T14.8XXA 33648612 (occured on 09/21/24) -- Tdap done 08/15/20 Active or passive immunization 598916939 Z23 -- pt reported she had Flu shot in Fall of 2021 [id number] Austin Barrientos MD [place] [address] [facility] [address] [address] 12/21/2024 08:31:26 12/21/2024 09:27:02 Increased frequency of urination 452521643 R35.0 90027 -- doing well lately Hypothyroidism 83951975 E03.9 Swelling o f lower limb 557018904 R22.40 (LLE >>RLE) -- chronic and stable Pain of le ft ankle joint 0707624693 8655033 M25.572 -- xrays on 11/27/23 was unremarkab le-- no symptoms today Hyperlipidemia 98791785 E78.5 -- Based on Atheroscle rotic Cardiovasc ular Disease 10-year risk calculatio n of 20.0% on 10/26/17, I will recommend pt start on cholestero l med to decrease her high risk for stroke, & heart attack. -- recheck lab(s) Osteoarthr itis of knee 364079076 M17.9 -- Rt TKR on 02/25/[address] Adriel Dalton-- pt is ready for Lt TKR Osteoporosis 44863633 M8 1.0 -- last DEXA done 12/25/21-- advised weight bearing exercise-- pt does not want to do Anabolics Cramp in l ower leg associated with rest 437431196 G47.62 -- may be anemic after Rt TKR on 09/17/[address] Carlos Mendoza-- recheck lab(s) in 2 months Long-term drug therapy 405405807 Z79.891 (rosuvasta tin) At low risk for fall 439 501532 Z91.81 -- no unsteady balance or gait problems-- no fear of falling or falling tendency Body mass index less than 20 060137565 Z68.1 -- advised weight gain; pt gained 2 # since her last visit -- pt's BMI today is 17.2 (ideal is between 20-25) Active or passive immunization 334004572 Z23 -- pt reported she had Flu shot in Fall of 2021 Health Concerns Section Related Observation LastModified by Organization Detai ls LastModified Time None Recorded Concern Status LastModified by Organization Details LastModified Time None Recorded Advance Directives Directive Y: Payers Insurance Date Sequence Insurance Name Policy Number Policy Stiles Covered Member ID Stiles Member ID Guarantor Name 12/21/2024 1 [place] Kacy Romanley [id number] Kacy Ramos Jim 12/21/2024 2 [employer] [facility] [employer] (MEDICARE SUPPLEMENT) PLAN F Kacy Romanley [id number] Kacy Ramos Jim 12/12/2020 2 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 Weeping site has dried and scabbed now. No f/c, leg pain, GUO/SOB, chest discomfort or pain. Pt also has left ankle pain (no injury recalled). Pt feels well and has no c/o. Pt has no new sx and no increasing sx. Patient denies any jaw or neck discomfort, left arm pain/left arm discomfort, chest discomfort/pain, diaphoresis, breathing symptoms/chest tightness, indigestion sx, n/v, any angina equivalent symptoms, etc. Austin Barrientos MD [address] [facility] [address], [place], [address], [facility] 11/26/2023 09:01:01 01/13/2024 text/html Medicare Annual Wellness VisitReported by PatientSocial/Behavio ral HistoryFor fracture risk, patient reportshistory of fractures (left hip fx in 2006 -- slipped on black ice.)but reportsno recent explained fracture. For diet and nutrition, patient reportshealthy diet,discussed vitamin and supplement use, anddiscussed maintaining calcium balance. For physical activity, patient reportsexercises on a regular basis,recent increase in physical activity, andgood physical condition.Mental Status:For depression risk, patient reportsnever feels sad, empty, or tearful,no loss of interest in activities,no significant changes in weight,no sleep disturbances or insomnia,no agitation,no loss of energy,no feelings of worthlessness or guilt,no thoughts of suicide, andno history of mood disorders. For orientation, patient reportsno disorientation to time,no disorientation to date, andno disorientation to place. For concentration and memory, patient reportsno decreased concentrating ability,no memory lapses or loss, anddoes not forget words. For speech/motor difficulties, patient reportsno speech difficulties,no difficulty expressing formulated concepts,no difficulty with fine manipulative tasks,no difficulty writing/copying,no slowed reaction time, anddoes not knock things over when trying to pick them up.Functional AbilityFor hearing, patient reportsno loss of hearing. For vision, patient reportsno vision problems. For activities of daily living, patient reportsable to bathe with limited or no assistance,able to contol urination and bowels,able to dress with limited or no assistance,able to feed self with limited or no assistance,able to get out of chair or bed with limited or no assistance,able to groom with limited or no assistance, andable to toilet with limited or no assistance. For instrumental activities of daily living, patient reportsable to do house work with limited or no assistance,able to grocery shop with limited or no assistance,able to manage medications with limited or no assistance,able to manage money with limited or no assistance,able to prepare meals with limited or no assistance, andable to use the phone with limited or no assistance. For falls risk assessment, patient reportsno frequent falls while walking,no fall in the past year,no fall since last visit, andno dizziness/vertigo. For home safety, patient reportsno unsafe kimberlee hazzards,no unsafe stairs,no unsafe gas appliances,working smoke/co detectors,use of seatbelts,no vision or hearing loss while driving,no fire arms,has hand bars in the bathroom/shower, andgood lighting in the home. Pt comes in for LLE swelling & f/u of ^TSH, HLD, Osteoporosis, and night time leg cramps. Pt feels well and has no c/o. Pt has no new sx and no increasing sx. Patient denies any jaw or neck discomfort, left arm pain/left arm discomfort, chest discomfort/pain, diaphoresis, breathing symptoms/chest tightness, indigestion sx, n/v, any angina equivalent symptoms, etc. MD Joi Aldridge [facility] [address], [place], [address], [facility] 01/13/2024 11:49:17 06/17/2024 text/html Pt p/w c/o head congestion w/ green mucus & frequent cough cough -- started after Easter 06/06/24. Pt also has Rt frontal sinus pressure. Pt saw her Cheese Grader Dr Pradeep Zimmerman yesterday & was given Amox-clav 500/125 1 tid #30 Pt also thinks she has a bladder infection since she is going to the bathroom all the time. Pt feels well and has no c/o. Pt has no new sx and no increasing sx. Patient denies any jaw or neck discomfort, left arm pain/left arm discomfort, chest discomfort/pain, diaphoresis, breathing symptoms/chest tightness, indigestion sx, n/v, any angina equivalent symptoms, etc. MD Joi Aldridge [facility] [address], [place], [address], [facility] 06/17/2024 11:38:16 09/22/2024 text/html Pt comes in for Rt dorsal hand skin laceration. Pt was rolling car window up when her Rt hand got caught. This happened yesterday.No focal weakness, numbness/tingling. MD Joi Aldridge [facility] [address], [place], [address], [facility] 09/22/2024 17:51:40 12/21/2024 text/html Pt comes in for f/u of Hypothyroidism, HLD, OA, Osteoporosis, and weight monitoring. Pt feels well and has no c/o. Pt has no new sx and no increasing sx. Patient denies any jaw or neck discomfort, left arm pain/left arm discomfort, chest discomfort/pain, diaphoresis, breathing symptoms/chest tightness, indigestion sx, n/v, any angina equivalent symptoms, etc. MD Joi Aldridge [facility] [address], [place], [address], [facility] 12/21/2024 09:27:21 OBGyn Episode No OBEpisode recorded.
--- OUTSIDE RECORDS SUMMARY | 2024-12-27 15:14 | XMS_ITS | Clinical Summary ---
Author Organization [facility] Address [address] [place] [address] Care Team Providers Care Solder Leveler [employer]ards Name Role Phone Unavailable Primary Care Provider Unavailabl e Source Comments [facility],non-owned Affiliates and Associated Physician Practices is amultiple site organization consisting of ambulatory clinics and hospital sitesin [place], [place], [place] and [place]. This disclosure is being madepursuant to the Care Everywhere program and may not contain all information available regarding this patient. 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 Gender Identity Not on file Sexual Orientation Not on file Plan of Treatment Health Maintenance Due Date Last Done Comments BONE DENSITY TESTING 1940 MEDICARE AWV 12 MONTHS 1940 DTAP/TDAP/TD VACCINES (1 - Tdap) 09/25/1959 PNEUMOCOCCAL VACCINE 50+ (1 of 1 - PCV) 1990 ZOSTER VACCINE (1 of 2) 1990 Respiratory Syncytial Virus (RSV) Vaccine Pt: or over 60 yrs (1 - 1-dose 75+ series) 09/25/2015 DEPRESSION SCREENING 02/18/2024 COVID-19 VACCINE (1 - 2023-2 5 season) 2024 INFLUENZA VACCINE (#1) 2024 HEPATITIS B VACCINE Aged Out No longe r eligible based on patient's age to complete this topic HIB VACCINE Aged Out No longer eligi ble based on patient's age to complete this topic HPV VACCINE Aged Out No longer eligi ble based on patient's age to complete this topic MENINGOCOCCAL (Group B) VACC INE SHARED DECISION-MAKING Aged Out No longer eligibl e based on patient's age to complete this topic MENINGOCOCCAL GROUPS A/C/Y/W VACCINE Aged Out No longer eligible b ased on patient's age to complete this topic Insurance MEDICARE [facility]
--- OUTSIDE RECORDS SUMMARY | 2024-12-27 15:14 | XMS_ITS | Encounter Summary ---
Author Organization [facility] Address [address] [place] [address] Care Team Providers Care Residential Finish Carpenter Name Role Phone Unavailable Primary Care Provider Unavailabl e Encounter Details Date Type Department Care Team (Late st Contact Info) Description 10/23/2023 Lab Requisition [facility] - DermPath Lab [address] [place] [phone] Shama Kirk PA [address] [place] [address] Social History Tobacco Use Types Packs/Day Years Used Date Smoking Tobacco: Never Assessed Comments Unknown Sex and Gender Information Value Date Recorded Sex Assigned at Not on file 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 Gender Identity Not on file Sexual Orientation Not on file documented as of this encounter Plan of Treatment Not on file documented as of this encounter Procedures Procedure Name Priority Date/Time Associated Diagnosis Comments DERMATOPATHOLOGY Routine 10/23/2023 11:3 3 AM CDT documented in this encounter Results * DERMATOPATHOLOGY (10/23/2023 11:33 AM CDT) Case Report Dermatopathology Report Case: [id number] Authorizing Provider: Shama Kirk PA Collected: 10/23/2023 11:33 AM Ordering Location: [facility] - Received: 10/24/2023 03:51 PM DermPath Lab Pathologist: Debbi Grimes MD Specimen: Skin, right upper arm 1:12 PM CDT DERMATOPATHOLOGY LABORATORY Final Diagnosis Specimen A. 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 The specimen consists of a shave biopsy measuring 98v19e9 mm. Jar 0. 1:12 PM CDT DERMATOPATHOLOGY LABORATORY Microscopic Description Specimen A. SKIN, right upper arm: The epidermis shows parakeratosis, full thickness disorderly maturation of keratinocytes, mitoses at different levels, and dyskeratotic cells. 1:12 PM CDT DERMATOPATHOLOGY LABORATORY Disclaimer An external and internal positive and negative controls are appropriate for the histochemical, immunohistochemical and immunofluorescence stain(s) in this case (if any), except where stated explicitly. The performance characteristics of the stain(s) cited in this report were developed and its performance characteristic determined by the Dermatopathology Laboratory at [facility], directed by Dr. Tisha Jacinto. These tests need not be, and therefore are not, approved by the [place] Food and Drug Administration. The tests are used for clinical purposes. Billing Codes Specimen Charges Stain Charges 50769 1 4 1:12 PM CDT DERMATOPATHOLOGY LABORATORY Embedded Images 1:12 PM CDT DERMATOPATHOLOGY LABORATORY Pathology/Cytolo gy TISSUE SPECIMEN FROM SKIN / Unknown 10/23/2023 11:33 AM CDT 10/24/2023 3:51 PM CDT [facility] - PATHOLOGY/CYTOLOGY ORDERAB LES Final Result DERMATOPATHOLOGY LABORATORY [facility] - Department of Dermatology [address], [address] [phone] documented in this encounter Visit Diagnoses Not on filedocumented in this encounter
== END 2024-12-27 15:11 | disposition home or self-care (01) ==
LOC: ANHFOHIMG 15:11
PROVIDERS: PCP Internal Medicine; Visit Provider Internal Medicine
DX: Z12.31 Encounter for screening mammogram for malignant neoplasm of breast (principal)
CPT/HCPCS: 77063; 77067